=== PATIENT | female | born 1950 | race Caucasian/White ===

== ENCOUNTER 2016-12-13 20:49 | Emergency (ER) | payer BC | END 2016-12-14 01:15 | disposition left against medical advice (07) | LOC: ER1 20:49 | DX: Z53.21 Procedure and treatment not carried out due to patient leaving prior to being seen by health care provider (principal) ==

== ENCOUNTER 2017-02-06 10:32 | Inpatient (IN) | payer BC ==
[~2017-02-06] VITALS: Ht 160 cm; Wt 61.2 kg
[2017-02-06 11:10] LABS: HEMOGLOBIN 13.6 gm/dl (12.3-15.3); RED BLOOD COUNT 4.58 M/UL (4.00-5.10); WHITE BLOOD COUNT 10.2 K/UL (4.5-11.0)
[2017-02-06 11:34] LABS: BUN/CREATININE RATIO 13 (0-10)
[2017-02-06] MEDS ORDERED: LEVOTHYROXINE88 MCG PO (18:23)
[2017-02-06] MEDS ORDERED: LIPITOR TAB 2020 MG PO (18:25)
[2017-02-06] MEDS ORDERED: PROAIR HFA8.5 GM INH (18:26)
[2017-02-06] MEDS ORDERED: FLOVENT DISKUS50 MCG INH (18:27)
[2017-02-06] MEDS ORDERED: ALBUTEROL2.5 MG/3 M INH (18:28)
[2017-02-07 05:57] LABS: HEMOGLOBIN 11.8 gm/dl (12.3-15.3); WHITE BLOOD COUNT 9.8 K/UL (4.5-11.0)
[2017-02-07 05:58] LABS: RED BLOOD COUNT 4.03 M/UL (4.00-5.10)
[2017-02-07 06:11] LABS: BUN/CREATININE RATIO 15 (0-10)
[2017-02-09 05:44] LABS: HEMOGLOBIN 11.5 gm/dl (12.3-15.3); RED BLOOD COUNT 3.95 M/UL (4.00-5.10)
[2017-02-09 05:51] LABS: WHITE BLOOD COUNT 7.2 K/UL (4.5-11.0)
[2017-02-09 06:07] LABS: BUN/CREATININE RATIO 28 (0-10)
[2017-02-10] MEDS ORDERED: DULERA 200 MCG8.8 GM INH (14:26)
[2017-02-10] MEDS ORDERED: PREDNISONE10 MG PO (14:27)
== END 2017-02-10 15:56 | disposition home or self-care (01) | DRG 189 ==
LOC: ER1 10:32 → ZEROF 15:59 → MED SURG 4 17:30
PROVIDERS: Emergency Medicine; Physician Assistant Medical; ADMIT Internal Medicine
DX: J96.01 Acute respiratory failure with hypoxia (principal); J45.901 Unspecified asthma with (acute) exacerbation; J98.11 Atelectasis; J44.1 Chronic obstructive pulmonary disease with (acute) exacerbation; J45.991 Cough variant asthma; E03.9 Hypothyroidism, unspecified; E78.5 Hyperlipidemia, unspecified; D49.1 Neoplasm of unspecified behavior of respiratory system; R91.1 Solitary pulmonary nodule; R07.89 Other chest pain; I45.81 Long QT syndrome; M19.90 Unspecified osteoarthritis, unspecified site; G89.29 Other chronic pain; Z87.891 Personal history of nicotine dependence; Z79.899 Other long term (current) drug therapy; Z88.0 Allergy status to penicillin; Z96.643 Presence of artificial hip joint, bilateral; Z98.890 Other specified postprocedural states; Z82.49 Family history of ischemic heart disease and other diseases of the circulatory system; Z83.3 Family history of diabetes mellitus; Z80.9 Family history of malignant neoplasm, unspecified
CPT/HCPCS: 36415; 36600; 71010; 71020; 80048; 80053; 82550; 82553; 82785; 82803; 83605; 83735; 83874; 83880; 84484; 85025; 85027; 85379; 87040; 87070; 87077; 87205; 93005; 94060; 94640; 94664; 96361; 96372; 96374; 96375; 99285; G0378; J0456; J0696; J1630; J1885; J2270; J2405; J2920; J2930; J7030; J7050; Q9963

== ENCOUNTER → 2017-03-12 | Outpatient (CLI) | payer BC ==
[~2017-03-12] MED LIST: ALBUTEROL2.5 MG/3 M INH; DULERA 200 MCG8.8 GM INH; FLOVENT DISKUS50 MCG INH; LEVOTHYROXINE88 MCG PO; LIPITOR TAB 2020 MG PO; PREDNISONE10 MG PO; PROAIR HFA8.5 GM INH
== END ==
LOC: HEART 5 16:08
DX: Z00.00 Encounter for general adult medical examination without abnormal findings (principal); J44.9 Chronic obstructive pulmonary disease, unspecified; J30.9 Allergic rhinitis, unspecified; E78.00 Pure hypercholesterolemia, unspecified; M19.90 Unspecified osteoarthritis, unspecified site; R94.2 Abnormal results of pulmonary function studies; Z87.891 Personal history of nicotine dependence
CPT/HCPCS: 94060; 94729

== ENCOUNTER → 2017-06-12 | Outpatient (CLI) | payer BC | LOC: CT 13:00 | DX: R93.8 Abnormal findings on diagnostic imaging of other specified body structures (principal); R91.1 Solitary pulmonary nodule | CPT/HCPCS: 71250 ==

== ENCOUNTER 2021-02-22 09:20 | Emergency (ER) | payer MEDICAID ==
[~2021-02-22 09:20] MED LIST changes: +FLONASE 0.05% N16 GM; +OMNICEF 300 MG300 MG PO; +ROBITUSSIN DM473 ML PO; +TESSALON PERLE100 MG PO
[2021-02-22] MEDS ORDERED: NAPROSYN EC 50500 MG GT (09:55)
== END 2021-02-22 10:10 | disposition home or self-care (01) ==
LOC: ER1 09:20
DX: S81.811A Laceration without foreign body, right lower leg, initial encounter (principal); J44.9 Chronic obstructive pulmonary disease, unspecified; E03.9 Hypothyroidism, unspecified; Z23 Encounter for immunization; W22.8XXA Striking against or struck by other objects, initial encounter
CPT/HCPCS: 12011; 90471; 90714; 99283